=== PATIENT | female | born 1975 | race Hispanic/Latino ===

== ENCOUNTER 2017-07-14 11:48 | Emergency (ER) | payer OTHER ==
[~2017-07-14] VITALS: Ht 160 cm; Wt 77.1 kg
[~2017-07-14 11:48] MED LIST: IBUPROFEN600 MG PO; TRAMADOL HCL50 MG PO; ZOLOFT100 MG PO
== END 2017-07-14 13:56 | disposition home or self-care (01) ==
LOC: ED 11:48
DX: S06.0X9A Concussion with loss of consciousness of unspecified duration, initial encounter (principal); S00.33XA Contusion of nose, initial encounter; Z79.899 Other long term (current) drug therapy; W20.8XXA Other cause of strike by thrown, projected or falling object, initial encounter
CPT/HCPCS: 70450; 99284

== ENCOUNTER 2018-06-01 09:01 | Emergency (ER) | payer OTHER ==
[~2018-06-01] VITALS: Ht 160 cm; Wt 67.4 kg
--- OUTSIDE RECORDS SUMMARY | ~2018-06-01 | XMS | Clinical Summary ---
Demographics + + + | Address | [address] | | | [place] [address] | + + + | Home Phone | | + + + | Preferred Language | Unknown | + + + | Marital Status | | + + + | Alevism Affiliation | 1041 | + + + | Race | Unknown | + + + | Ethnic Group | Unknown | + + + Author + + + | Author | [facility] | | | and [place] | + + + | Organization | [facility] | | | and [place] | + + + | Address | Unknown | + + + | Phone | Unavailable | + + + Support + + + + + | Name | Relationship | Address | Phone | + + + + + | Fidel Nevarez | ECON | [place], | | | | | [place] [address] | | + + + + + | Sandy Garcia | ECON | [address] | | | | | [place] | | | | | [place] | | | | | [address] | | + + + + + Care Team Providers + +------+ + | Care Cash Applications Associate Name | Role | Phone | + +------+ + | Rizwan Alanis MD | PP | | + +------+ + Allergies No Known Allergies Medications + + + +---------+------+------+-------+ | Medication | Sig | Dispensed | Refills | Star | End | Statu | | | | | | t | Date | s | | | | | | Date | | | + + + +---------+------+------+-------+ | sertraline | Take 100 mg by mouth | | 0 | | | Activ | | (ZOLOFT) 50 mg | Daily. | | | | | e | | tablet | | | | | | | + + + +---------+------+------+-------+ | albuterol 90 | Inhale 2 puffs into | 1 | 0 | 06/1 | | Activ | | mcg/puff inhaler | the lungs every 4 | Inhaler | | 2/20 | | e | | | hours as needed for | | | 16 | | | | | Wheezing or | | | | | | | | Shortness of Breath. | | | | | | | | Use with spacer | | | | | | | | device. | | | | | | + + + +---------+------+------+-------+ | promethazine | Take 1 tablet by | 56 | 0 | 01/1 | | Activ | | (PHENERGAN) 25 mg | mouth every 4 hours | tablet | | 2/20 | | e | | tablet | as needed. | | | 17 | | | + + + +---------+------+------+-------+ | nortriptyline | 1 capsule by mouth | 90 | 1 | 04/1 | | Activ | | (PAMELOR) 10 MG | at bedtime for 7 | capsule | | 1/20 | | e | | capsule | days; then 2 at | | | 17 | | | | | bedtime for 7 days; | | | | | | | | then 3 at bedtime | | | | | | + + + +---------+------+------+-------+ | diazePAM (VALIUM) | Take 0.5 tablets by | 10 | 0 | 08/0 | | Activ | | 10 MG tablet | mouth every 6 hours | tablet | | 2/20 | | e | | | as needed for Other | | | 17 | | | | | (spasming). | | | | | | + + + +---------+------+------+-------+ | simvastatin | Take 10 mg by mouth | | 0 | | | Activ | | (ZOCOR) 10 mg tablet | nightly. | | | | | e | + + + +---------+------+------+-------+ | propranolol | Take 40 mg by mouth | | 0 | | | Activ | | (INDERAL) 40 mg | 3 times daily. | | | | | e | | tablet | | | | | | | + + + +---------+------+------+-------+ | acetaminophen | Take 1-2 tablets by | 60 | 0 | 01/0 | | Activ | | (TYLENOL) 500 mg | mouth every 6 hours | tablet | | 8/20 | | e | | tablet | as needed for Pain. | | | 18 | | | + + + +---------+------+------+-------+ | ibuprofen | Take 1 tablet by | 30 | 0 | 05/0 | | Activ | | (ADVIL,MOTRIN) 600 | mouth every 6 hours | tablet | | 6/20 | | e | | MG tablet | as needed for Pain. | | | 18 | | | + + + +---------+------+------+-------+ | hydrOXYzine | Take 1 tablet by | 40 | 0 | 08/1 | | Activ | | hydrochloride | mouth every 6 hours | tablet | | 9/20 | | e | | (ATARAX) 25 mg | as needed for | | | 18 | | | | tabletIndications: | Itching. | | | | | | | Local reaction to | | | | | | | | insect sting, | | | | | | | | accidental or | | | | | | | | unintentional, | | | | | | | | initial encounter | | | | | | | + + + +---------+------+------+-------+ | | Take 1-2 tablets by | 20 | 0 | 11/0 | | Activ | | oxyCODONE-acetaminop | mouth every 6 hours | tablet | | 3/20 | | e | | hen (PERCOCET) 5-325 | as needed for Pain. | | | 18 | | | | mg per tablet | | | | | | | + + + +---------+------+------+-------+ | traZODone | Take 50 mg by mouth | | 0 | | | Activ | | (DESYREL) 50 mg | nightly. | | | | | e | | tablet | | | | | | | + + + +---------+------+------+-------+ | cyclobenzaprine | Take 1 tablet by | 15 | 0 | 12/0 | | Activ | | (FLEXERIL) 10 mg | mouth 3 times daily | tablet | | 8/20 | | e | | tablet | as needed for Muscle | | | 18 | | | | | spasms. | | | | | | + + + +---------+------+------+-------+ | predniSONE | Take 3 tablets by | 15 | 0 | 12/2 | | Activ | | (DELTASONE) 20 mg | mouth Daily. | tablet | | 9/20 | | e | | tablet | | | | 18 | | | + + + +---------+------+------+-------+ | | Take 1 tablet by | 20 | 0 | 12/2 | | Activ | | oxyCODONE-acetaminop | mouth every 6 hours | tablet | | 9/20 | | e | | hen (PERCOCET) 5-325 | as needed. | | | 18 | | | | mg per tablet | | | | | | | + + + +---------+------+------+-------+ | meclizine | Take 1 tablet by | 20 | 0 | 02/1 | | Activ | | (ANTIVERT) 25 mg | mouth every 6 hours | tablet | | 0/20 | | e | | tablet | as needed for | | | 19 | | | | | Nausea. | | | | | | + + + +---------+------+------+-------+ | ondansetron | Take 1 tablet by | 15 | 0 | 02/1 | | Activ | | (ZOFRAN ODT) 4 mg | mouth every 6 hours | tablet | | 0/20 | | e | | disintegrating | as needed for | | | 19 | | | | tablet | Nausea. | | | | | | + + + +---------+------+------+-------+ | | Take 1 tablet by | 10 | 0 | 02/1 | | Activ | | HYDROcodone-acetamin | mouth EVERY 4 TO 6 | tablet | | 0/20 | | e | | ophen (NORCO) 5-325 | HOURS NEEDED for | | | 19 | | | | mg per tablet | Pain. | | | | | | + + + +---------+------+------+-------+ Active Problems + + + | Problem | Noted Date | + + + | Chronic bilateral thoracic back pain | 09/30/2016 | + + + | Postural kyphosis of cervicothoracic region | 09/30/2016 | + + + Encounters +--------+ + + + + | Date | Type | Specialty | Care Team | Description | +--------+ + + + + | 03/18/ | Emergency | | [place], | Peripheral vertigo, | | 2019 | | | Tha Powell MD | unspecified | | | | | | laterality (Primary | | | | | | Dx); Pain, dental; | | | | | | Dry socket | +--------+ + + + + from Last 3 Months Family History + + +------+ + | Medical History | Relation | Name | Comments | + + +------+ + | No known problems | Father | | | + + +------+ + | Diabetes | Mother | | | + + +------+ + | High blood pressure | Mother | | | + + +------+ + | High cholesterol | Mother | | | + + +------+ + + +------+ + + | Relation | Name | Status | Comments | + +------+ + + | Brother | | Alive | | + +------+ + + | Father | | | | + +------+ + + | Mother | | Alive | | + +------+ + + | Sister | | Alive | | + +------+ + + Social History + +-------+ +--------+------+ | Tobacco Use | Types | Packs/Day | Years | Date | | | | | Used | | + +-------+ +--------+------+ | Never Smoker | | | | | + +-------+ +--------+------+ + +---+---+---+ | Smokeless Tobacco: | | | | | Never Used | | | | + +---+---+---+ + + +---------+ + | Alcohol Use | Drinks/We | oz/Week | Comments | | | ek | | | + + +---------+ + | No | | | | + + +---------+ + + + + | Sex Assigned at | Date Recorded | | | | + + + | Not on file | | + + + + + + + | Job Start Date | Occupation | Industry | + + + + | Not on file | Not on file | Not on file | + + + + + + + + | Travel History | Travel Start | Travel End | + + + + + + | No recent travel history available. | + + Last Filed Vital Signs + + + + | Vital Sign | Reading | Time Taken | + + + + | Blood Pressure | 127/72 | 03/18/20181142 PST | + + + + | Pulse | 57 | 03/18/20183 PST | + + + + | Temperature | 36.8 C (98.3 F) | 03/18/20181021 PST | + + + + | Respiratory Rate | 18 | 03/18/20181021 PST | + + + + | Oxygen Saturation | 97% | 03/18/2018 1143 PST | + + + + | Inhaled Oxygen | - | - | | Concentration | | | + + + + | Weight | 69.4 kg (153 lb) | 03/18/20181021 PST | + + + + | Height | 160 cm (5' 3") | 03/18/20181021 PST | + + + + | Body Mass Index | 27.1 | 03/18/2018 1022 PST | + + + + Plan of Treatment + + + + + | Health Maintenance | Due Date | Last Done | Comments | + + + + + | Cervical Cancer | | | | | Screening (Pap) | 4 | | | + + + + + | Vaccine: | | 07/19/2017, 08/18/2014, | | | Dtap/Tdap/Td (4 - | 8 | 08/15/2014, Additional history | | | Td) | | exists | | + + + + + | Vaccine: Influenza | Completed | 12/25/2017, 02/16/2017, | | | | | 02/16/2017, Additional history | | | | | exists | | + + + + + Results Not on filefrom Last 3 Months Insurance + +--------+ +--------+ +---------+--------+ | Payer | Benefi | Subscriber | Effect | Phone | Address | Type | | | t Plan | ID | guillermo | | | | | | / | | Dates | | | | | | Group | | | | | | + +--------+ +--------+ +---------+--------+ | [employer] | CC[employer] | [id number] | | [phone] | | Indemn | | | WC | 3 | 017-Pr | 8 | | ity | | | | | esent | | | | + +--------+ +--------+ +---------+--------+ | [facility] | PHP | [id number] | 08/07/19 | [phone] | | PPO | | PLAN | PERSON | | 18-Pre | 5 | | | | | AL | | sent | | | | | | OPEN | | | | | | | | OPTION | | | | | | + +--------+ +--------+ +---------+--------+ | [employer] | HMA | [id number] | 10/08/19 | [phone] | | PPO | | ADMIN | BCBS | 0 | 14-Pre | 3 | | | | | PPO | | sent | | | | + +--------+ +--------+ +---------+--------+ + +--------+ +--------+ + + | Guarantor Name | Accoun | Relation to | Date | Phone | Billing Address | | | t Type | Patient | of | | | | | | | | | | + +--------+ +--------+ + + | Gina Nevarez | Person | Self [birth year] | [address] | | | al/Fam | | 1976 | [phone] | [place] | | | [place] | | | 7 (Home) | [phone] | + +--------+ +--------+ + + | Gina Nevarez | Worker | Self | [birth year] | [address] | | | s Comp | | 1975 | [phone] | [place] | | | | | | 1 (Home) | [phone] | + +--------+ +--------+ + + Advance Directives Patient has advance care planning documents on file. For more information, please contact:[facility] [place] [address]
--- OUTSIDE RECORDS SUMMARY | ~2018-06-01 | XMS | Encounter Summary ---
Demographics + + + | Address | [address] | | | [place] [address] | + + + | Home Phone | | + + + | Preferred Language | Unknown | + + + | Marital Status | | + + + | Oriental Orthodox Affiliation | 1041 | + + + | Race | Unknown | + + + | Ethnic Group | Unknown | + + + Author + + + | Author | [facility] | | | and [place] | + + + | Organization | [facility] | | | and [place] | + + + | Address | Unknown | + + + | Phone | Unavailable | + + + Support + + + + + | Name | Relationship | Address | Phone | + + + + + | Fidel Nevarez | ECON | [place], | | | | | [place] [address] | | + + + + + | Sandy Garcia | ECON | [address] | | | | | [place] | | | | | [place], [place] | | | | | [address] | | + + + + + Care Team Providers + +------+ + | Care Computer Designer Name | Role | Phone | + +------+ + | Rizwan Alanis MD | PCP | | + +------+ + Reason for Visit + + + | Reason | Comments | + + + | Nausea | | + + + | Dizziness | | + + + | Jaw Pain | | + + + Encounter Details +--------+ + + + + | Date | Type | Department | Care Team | Description | +--------+ + + + + | 03/18/ | Emergency | [facility] | [place] | Peripheral vertigo, | | 2019 | | [facility] | Tha Powell MD [address] | unspecified | | | | CENTER [address] | [address] [place] | laterality (Primary | | | | [place], [place] | [place] [address] | Dx); Pain, dental; | | | | [address] | [phone] | Dry socket | | | | [phone] | | | +--------+ + + + + Social History + +-------+ +--------+------+ [...] recent travel history available. | + + documented as of this encounter Last Filed Vital Signs + + + + | Vital Sign | Reading | Time Taken | + + + + | Blood Pressure | 127/72 | 03/18/20181142 PST | + + + + | Pulse | 57 | 03/18/20181142 PST | + + + + | Temperature | 36.8 C (98.3 F) | 03/18/20181021 PST | + + + + | Respiratory Rate | 18 | 03/18/20181021 PST | + + + + | Oxygen Saturation | 97% | 03/18/20181142 PST | + + + + | Inhaled Oxygen | - | - | | Concentration | | | + + + + | Weight | 69.4 kg (153 lb) | 03/18/2018 1022 PST | + + + + | Height | 160 cm (5' 3") | 03/18/2018 1022 PST | + + + + | Body Mass Index | 27.1 | 03/18/2018 1022 PST | + + + + documented in this encounter Discharge Instructions Instructions Tha Garcia MD - 03/18/2018Use meclizine to help with dizziness/tres tigo Use zofran if needed for nausea Use Melvin if needed for dental pain Return if worsening, otherwise follow up with you dentist and your doctor as needed Be sure to rinse out the tooth sockets after eating AttachmentsThe following attachments cannot be sent through Care Everywhere.Socket, Dry (Sp timothy)Dizziness (Vertigo) with Medicines, Managing (Surinamese)documented in this encounter Medications at Time of Discharge + + + +---------+ + + | Medication | Sig | Dispensed | Refills | Start | End Date | | | | | | Date | | + + + +---------+ + + | acetaminophen | Take 1-2 tablets by | 60 | 0 | 02/13/19 | | | (TYLENOL) 500 mg | mouth every 6 hours | tablet | | 18 | | | tablet | as needed for Pain. | | | | | + + + +---------+ + + | albuterol 90 | Inhale 2 puffs into | 1 | 0 | 07/19/19 | | | mcg/puff inhaler | the lungs every 4 | Inhaler | | 16 | | | | hours as needed for | | | | | | | Wheezing or | | | | | | | Shortness of Breath. | | | | | | | Use with spacer | | | | | | | device. | | | | | + + + +---------+ + + | cyclobenzaprine | Take 1 tablet by | 15 | 0 | 01/14/20 | | | (FLEXERIL) 10 mg | mouth 3 times daily | tablet | | 18 | | | tablet | as needed for Muscle | | | | | | | spasms. | | | | | + + + +---------+ + + | diazePAM (VALIUM) | Take 0.5 tablets by | 10 | 0 | 09/08/19 | | | 10 MG tablet | mouth every 6 hours | tablet | | 17 | | | | as needed for Other | | | | | | | (spasming). | | | | | + + + +---------+ + + | | Take 1 tablet by | 10 | 0 | 03/18/19 | | | HYDROcodone-acetamin | mouth EVERY 4 TO 6 | tablet | | 19 | | | ophen (NORCO) 5-325 | HOURS NEEDED for | | | | | | mg per tablet | Pain. | | | | | + + + +---------+ + + | hydrOXYzine | Take 1 tablet by | 40 | 0 | // | | | hydrochloride | mouth every 6 hours | tablet | | 18 | | | (ATARAX) 25 mg | as needed for | | | | | | tabletIndications: | Itching. | | | | | | Local reaction to | | | | | | | insect sting, | | | | | | | accidental or | | | | | | | unintentional, | | | | | | | initial encounter | | | | | | + + + +---------+ + + | ibuprofen | Take 1 tablet by | 30 | 0 | 06/12/19 | | | (ADVIL,MOTRIN) 600 | mouth every 6 hours | tablet | | 18 | | | MG tablet | as needed for Pain. | | | | | + + + +---------+ + + | meclizine | Take 1 tablet by | 20 | 0 | 03/18/19 | | | (ANTIVERT) 25 mg | mouth every 6 hours | tablet | | 19 | | | tablet | as needed for | | | | | | | Nausea. | | | | | + + + +---------+ + + | nortriptyline | 1 capsule by mouth | 90 | 1 | 05/18/19 | | | (PAMELOR) 10 MG | at bedtime for 7 | capsule | | 17 | | | capsule | days; then 2 at | | | | | | | bedtime for 7 days; | | | | | | | then 3 at bedtime | | | | | + + + +---------+ + + | ondansetron | Take 1 tablet by | 15 | 0 | 03/18/19 | | | (ZOFRAN ODT) 4 mg | mouth every 6 hours | tablet | | 19 | | | disintegrating | as needed for | | | | | | tablet | Nausea. | | | | | + + + +---------+ + + | | Take 1 tablet by | 20 | 0 | 02/04/20 | | | oxyCODONE-acetaminop | mouth every 6 hours | tablet | | 18 | | | hen (PERCOCET) 5-325 | as needed. | | | | | | mg per tablet | | | | | | + + + +---------+ + + | | Take 1-2 tablets by | 20 | 0 | 12/10/19 | | | oxyCODONE-acetaminop | mouth every 6 hours | tablet | | 18 | | | hen (PERCOCET) 5-325 | as needed for Pain. | | | | | | mg per tablet | | | | | | + + + +---------+ + + | predniSONE | Take 3 tablets by | 15 | 0 | 02/04/20 | | | (DELTASONE) 20 mg | mouth Daily. | tablet | | 18 | | | tablet | | | | | | + + + +---------+ + + | promethazine | Take 1 tablet by | 56 | 0 | 02/17/19 | | | (PHENERGAN) 25 mg | mouth every 4 hours | tablet | | 17 | | | tablet | as needed. | | | | | + + + +---------+ + + | propranolol | Take 40 mg by mouth | | 0 | | | | (INDERAL) 40 mg | 3 times daily. | | | | | | tablet | | | | | | + + + +---------+ + + | sertraline | Take 100 mg by mouth | | 0 | | | | (ZOLOFT) 50 mg | Daily. | | | | | | tablet | | | | | | + + + +---------+ + + | simvastatin | Take 10 mg by mouth | | 0 | | | | (ZOCOR) 10 mg tablet | nightly. | | | | | + + + +---------+ + + | traZODone | Take 50 mg by mouth | | 0 | | | | (DESYREL) 50 mg | nightly. | | | | | | tablet | | | | | | + + + +---------+ + + documented as of this encounter Plan of Treatment Not on filedocumented as of this encounter Visit Diagnoses + + | Diagnosis | + + | Peripheral vertigo, unspecified laterality - Primary | + + | Pain, dental Unspecified disorder of the teeth and supporting structures | + + | Dry socket Alveolitis of jaw | + + documented in this encounter Administered Medications + +--------+ + +------+------+ | Medication Order | MAR | Action | Dose | Rate | Site | | | Action | Date | | | | + +--------+ + +------+------+ | HYDROcodone-acetaminophen | Given | 03/18/19 | 1 tablet | | | | (NORCO) 5-325 mg per tablet 1 | | 19 10:38 | | | | | tablet 1 tablet, Oral, ONCE, Sun | | PST | | | | | 03/18/18 at 1035, For 1 dose | | | | | | + +--------+ + +------+------+ +---+---+ | | | +---+---+ + +-------+ +-------+---+---+ | meclizine (ANTIVERT) tablet 25 | Given | 03/18/19 | 25 mg | | | | mg 25 mg, Oral, ONCE, Sun | | 19 10:38 | | | | | 03/18/18 at 1035, For 1 dose | | PST | | | | + +-------+ +-------+---+---+ +---+---+ | | | +---+---+ + +-------+ +------+---+---+ | ondansetron (ZOFRAN ODT) | Given | 03/18/19 | 8 mg | | | | disintegrating tablet 8 mg 8 mg, | | 19 10:36 | | | | | Oral, ONCE, 03/18/18 at 1035, | | PST | | | | | For 1 dose | | | | | | + +-------+ +------+---+---+ +---+---+ | | | +---+---+ documented in this encounter
--- OUTSIDE RECORDS SUMMARY | ~2018-06-01 | XMS | Clinical Summary ---
Demographics + + + | Address | [address] | | | [place] [address] | + + + | Home Phone | | + + + | Preferred Language | Unknown | + + + | Marital Status | | + + + | Confucianist Affiliation | 1041 | + + + | Race | Unknown | + + + | Ethnic Group | Unknown | + + + Author + + + | Author | [facility] | + + + | Organization | [facility] | + + + | Address | Unknown | + + + | Phone | Unavailable | + + + Support + + +---------+ + | Name | Relationship | Address | Phone | + + +---------+ + | Fidel Nevarez | ECON | Unknown | | + + +---------+ + Care Team Providers + +------+ + | Care Content Coordinator Name | Role | Phone | + [...] | MA - GENERIC | MA-GEN | [phone] | Medica | | | | | NOELLE | | re | | | + +--------+ +--------+ +---------+ | ASURIS | HMA | | | [phone] | | INSURA | [id number] [phone] | | | [...] | | al/Fam | | 1975 | [phone] | [place], [place] | | | [place] | | | [phone] | [phone] | + +--------+ +--------+ + + | FIONA MATAMOROS | Person | Self | [birth year] | Home: | [address] | | | al/Fam | | 1975 | [phone] | [place] | | | [place] | | | [phone] | [phone] | + +--------+ +--------+ + + | FIONA NEVAREZ | Worker | Self | [birth year] | Home: | [address] | | | s Comp | | 1975 | [phone] | [place] | | | | | | [phone] | [phone] | + +--------+ +--------+ + +
--- OUTSIDE RECORDS SUMMARY | ~2018-06-01 | XMS | Encounter Summary ---
Demographics + + + | Address | [address] | | | [place] [address] | + + + | Home Phone | | + + + | Preferred Language | Unknown | + + + | Marital Status | | + + + | Mosque Affiliation | 1041 | + + + | Race | Unknown | + + + | Ethnic Group | Unknown | + + + Author + + + | Author | [facility] | | | and [place] | + + + | Organization | [facility] | | | and [place] | + + + | Address | Unknown | + + + | Phone | Unavailable | + + + Support + + + + + | Name | Relationship | Address | Phone | + + + + + | Fidel Nevarez | ECON | [place], | | | | | [place] [address] | | + + + + + | Sandy Garcia | ECON | [address] | | | | | [place] | | | | | [place], [place] | | | | | [address] | | + + + + + Care Team Providers + +------+ + | Care Standards Engineer Name | Role | Phone | + [...] + + | 03/18/ | Emergency | [facility] | [place], | Peripheral vertigo, | | 2019 | | [facility] | Tha Powell MD [address] | unspecified | | | | CENTER [address] | [address] [place] | laterality (Primary | | | | [place], [place] | [place] [address] | Dx); Pain, dental; | | | | [address] | [phone] | Dry socket | | | | [phone] | | | +--------+ + + + [...] in this encounter Discharge Instructions Instructions Tha Garcai MD - 03/18/2018Use meclizine to help with dizziness/tres tigo Use zofran if needed for nausea Use [place] if needed for dental pain Return if worsening, otherwise follow up with you dentist and your doctor as needed Be sure to rinse out the tooth sockets after eating AttachmentsThe following attachments cannot be sent through Care Everywhere.Socket, Dry (Sp timothy)Dizziness (Vertigo) with Medicines, Managing ([place]er)documented in this encounter Medications at Time of [...]
--- OUTSIDE RECORDS SUMMARY | ~2018-06-01 | XMS | Clinical Summary ---
Demographics + + + | Address | [address] | | | [place] [address] | + + + | Home Phone | | + + + | Preferred Language | Unknown | + + + | Marital Status | | + + + | Tenriism Affiliation | 1041 | + + + | Race | Unknown | + + + | Ethnic Group | Unknown | + + + Author + + + | Author | [facility] | + + + | Organization | [facility] | + + + | Address | Unknown | + + + | Phone | Unavailable | + + + Support + + +---------+ + | Name | Relationship | Address | Phone | + + +---------+ + | Fidel Nevarez | ECON | Unknown | | + + +---------+ + Care Team Providers + +------+ + | Care Profiler Operator Name | Role | Phone | + [...] | MA - GENERIC | MA-GEN | [id number] | Medica | | | | | NOELLE | | re | | | + +--------+ +--------+ +---------+ | ASURIS | HMA | | | [phone] | | | INSURA | [id number] | | [phone] | | | | [...] | | al/Fam | | 1975 | [phone] | [place], [place] | | | itto | | | [phone] | [address] | + +--------+ +--------+ + + | FIONA MATAMOROS | Person | Self | [birth year] | Home: | [address] | | | al/Fam | | 1975 | [phone] | [place] | | | tito | | | [phone] | [phone] | + +--------+ +--------+ + + | FIONA NEVAREZ | Worker | Self | [birth year] | Home: | [address] | | | s Comp | | 1975 | [phone] | [place] | | | | | | [phone] | [phone] | + +--------+ +--------+ + +
--- OUTSIDE RECORDS SUMMARY | ~2018-06-01 | XMS | Clinical Summary ---
Demographics + + + | Address | [address] | | | [place] [address] | + + + | Home Phone | | + + + | Preferred Language | Unknown | + + + | Marital Status | | + + + | Faith Affiliation | 1041 | + + + | Race | Unknown | + + + | Ethnic Group | Unknown | + + + Author + + + | Author | [facility] | | | and [place] | + + + | Organization | [facility] | | | and [place] | + + + | Address | Unknown | + + + | Phone | Unavailable | + + + Support + + + + + | Name | Relationship | Address | Phone | + + + + + | Fidel Nevarez | ECON | [place], | | | | | [place] [address] | | + + + + + | Sandy Garcia | ECON | [address] | | | | | [place] | | | | | [place] | | | | | [address] | | + + + + + Care Team Providers + +------+ + | Care Railroad Dispatcher Name | Role | Phone | + [...] +--------+ +---------+--------+ | CCMSI | CCMSI | [id number] | | [phone] | | Indemn | | | WC | 3 | 017-Pr | 8 | | ity | | | | | esent | | | | + +--------+ +--------+ +---------+--------+ | [facility] | PHP | [id number] | 08/07/19 | [phone] | | PPO | | PLAN | PERSON | | 18-Pre | 5 | | | | | AL | | sent | | | | | | OPEN | | | | | | | | OPTION | | | | | | + +--------+ +--------+ +---------+--------+ | [facility] | HMA | [id number] | 10/08/19 | [phone] | | PPO | | ADMIN | [...] | | al/Fam | | 1976 | [phone] | [place] | | | tito | | | 7 (Home) | [phone] | + +--------+ +--------+ + + | Gina Nevarez | Worker | Self | [birth year] | | [address] | | | s Comp | | 1975 | [phone] | [place] | | | | | | 1 (Home) | [phone] | + +--------+ +--------+ + + Advance Directives Patient has advance care planning documents on file. For more information, please contact:[facility] [place] [address]
[~2018-06-01 09:01] MED LIST changes: +DICLOFENAC SODI75 MG PO
--- OUTSIDE RECORDS SUMMARY | 2018-06-01 09:06 | XMS ---
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 Nakita VISIT COUNT (12 MO.) 7 Yusra Elizabeth TOTAL 10 NOTE: Visits indicate total known visits. ED/UCC VISIT TRACKING (12 MO.) 06/01/2018 09:02 [facility] [place] TYPE: Emergency COMPLAINT: - L SHOULDER PAIN/INJURY 03/18/2018 [facility]17 [facility] DIAGNOSES: - Other peripheral vertigo, unspecified ear - Other specified disorders of teeth and supporting structures - Dizziness - nausea/dizziness - Alveolitis of jaws - Jaw Pain - Nausea 02/03/2018 13:[address] [facility] [place] TYPE: Emergency DIAGNOSES: - Hand Pain - Neck Pain, arms and hands are numb weak - Numbness - Spinal stenosis, site unspecified - Arm Pain - Radiculopathy, cervical region - Tingling - Back Pain 02/01/2018 05:41 GRETEL Mena TYPE: Emergency COMPLAINT: - NECK PAIN,BILAT HAND NUMBNESS DIAGNOSES: - Other correction (current) drug therapy - Cervicalgia - Major depressive disorder, single episode, unspecified 01/13/2018 22:[address] [facility] [place] TYPE: Emergency DIAGNOSES: - BAck/neck pain,hand numbness,dizziness - Back Pain - Radiculopathy, cervical region - Cervicalgia 12/[facility]2017 [facility] DIAGNOSES: - Arm Pain - Radiculopathy, cervical region - Back Pain - Arm pain and numbness 11/20/2017 20:12 [facility] Cecilia Gandhi [place] TYPE: Emergency DIAGNOSES: - Sexually Transmitted Disease Check - Breast Problem - rash on breast/ pain - Unspecified sexually transmitted disease 09/24/2017 14:12 [facility] [place] TYPE: Urgent Care DIAGNOSES: - Insect Bite - Toxic effect of venom of wasps, accidental (unintentional), initial encounter - Toxic effect of venom of other arthropod, accidental (unintentional), initial encounter 07/14/2017 11:49 G[facility] [place] TYPE: Emergency COMPLAINT: - HEAD PAIN/NOSE INJURY DIAGNOSES: - Concussion with loss of consciousness of unspecified duration, initial encounter - Other cause of strike by thrown, projected or falling object, initial encounter - Other correction (current) drug therapy - Contusion of nose, initial encounter - Headache 07/01/2017 23:52 [facility] RicardoStephanie MERRILL TYPE: Emergency DIAGNOSES: - Anxiety - Nonpsychotic mental disorder, unspecified 06/11/2017 06:03 [facility] TYPE: Emergency DIAGNOSES: - Dizziness and giddiness - Numbness - Anesthesia of skin - Dizziness - dizzy INPATIENT VISIT TRACKING (12 MO.) No inpatient visits to display in this time frame [email or web address]
[2018-06-01] MEDS ORDERED: CYCLOBENZAPRINE5 MG PO (10:02)
[2018-06-01] MEDS ORDERED: ULTRAM50 MG PO (10:02)
== END 2018-06-01 10:28 | disposition home or self-care (01) ==
LOC: ED 09:01
DX: S16.1XXA Strain of muscle, fascia and tendon at neck level, initial encounter (principal); S46.812A Strain of other muscles, fascia and tendons at shoulder and upper arm level, left arm, initial encounter; F32.9 Major depressive disorder, single episode, unspecified; W01.10XA Fall on same level from slipping, tripping and stumbling with subsequent striking against unspecified object, initial encounter; Y99.0 Civilian activity done for income or pay
CPT/HCPCS: 70450; 72040; 99284-25

== ENCOUNTER 2018-07-05 15:23 | Emergency (ER) | payer OTHER ==
[~2018-07-05] VITALS: Ht 160 cm; Wt 68.0 kg
--- OUTSIDE RECORDS SUMMARY | ~2018-07-05 | XMS ---
Demographics + + + | Address | [address] | | | [place] [address] | + + + | Preferred Language | Unknown | + + + | Marital Status | Unknown | + + + | Jehovah'S Witness Affiliation | Unknown | + + + | Race | Unknown | + + + | Ethnic Group | Unknown | + + + Author + + + | Author | [facility] | + + + | Organization | [facility] | + + + | Address | [address] | | | [place] [address] | + + + | Phone | | + + + Care Team Providers + + + + | Care Hat Cutter Name | Role | Phone | + + + + Unavailable | Unavailable | + + + + PROBLEMS Unknown Problems ALLERGIES No Known Allergies SOCIAL HISTORY Never Assessed PLAN OF CARE + +---------+ | Activity | Details | + +---------+ +---+ | | +---+ + + + | Follow Up | prn Reason:null | + + + VITAL SIGNS + + + + | Height | 63 in | 2016-10-14 | + + + + | Weight | 171 lbs | 2016-10-14 | + + + + | BMI | 30.29 kg/m2 | 2016-10-14 | + + + + | Temperature | 98.5 degrees Fahrenheit | 2016-10-14 | + + + + | Heart Rate | 79 /min | 2016-10-14 | + + + + | Blood pressure systolic | 142 mm Hg | 2016-10-14 | + + + + | Blood pressure diastolic | 96 mm Hg | 2016-10-14 | + + + + MEDICATIONS + + + + + + + +--------+ | Medicati | Instruct | Dosage | Frequenc | Start | End Date | Duration | Status | | on | ions | | y | Date | | | | + + + + + + + +--------+ | Hydrocod | Orally | 2 | 6h | | | | Active | | one-Acet | every 6 | tablets | | | | | | | aminophe | hrs | as | | | | | | | n 5-325 | | needed | | | | | | | MG | | | | | | | | + + + + + + + +--------+ | Sertrali | Orally | 1 tablet | 24h | | | | Active | | ne HCl | Once a | | | | | | | | 100 MG | day | | | | | | | + + + + + + + +--------+ | Trazodon | Orally | 1-2 | 24h | | | | Active | | e 50 MG | Once a | tablet | | | | | | | | day | at | | | | | | | | | bedtime | | | | | | + + + + + + + +--------+ | Motrin | Orally | 1 tablet | | 08 Sep, | | 30 | Active | | IB 800 | tid prn | as | | 2016 | | | | | MG | pain | needed | | | | | | + + + + + + + +--------+ | Azithrom | Orally | 2 tabs | 24h | 08 Sep, | 13 Sep, | 5 days | Active | | ycin 250 | daily | now then | | 2017 | 2017 | | | | mg | | 1 a day | | | | | | + + + + + + + +--------+ | Simvasta | Orally | 1 tablet | 24h | | | | Active | | tin 10 | Once a | in the | | | | | | | MG | day | evening | | | | | | + + + + + + + +--------+ | Proprano | Orally | 1 tablet | 12h | | | | Active | | lol HCl | Twice a | | | | | | | | 40 MG | day | | | | | | | + + + + + + + +--------+ | Ondanset | Orally | 1 tablet | 8h | | | | Active | | francisco 4 MG | every 8 | on the | | | | | | | | hrs | tongue | | | | | | | | | and | | | | | | | | | allow to | | | | | | | | | | | | | | | | | | dissolve | | | | | | + + + + + + + +--------+ RESULTS No Results PROCEDURES No Known procedures IMMUNIZATIONS No Known Immunizations MEDICAL (GENERAL) HISTORY + + +------+ | Type | Description | Date | + + +------+ | Medical History | Last Pap Smear was May | | | | [facility] | | + + +------+"
--- OUTSIDE RECORDS SUMMARY | ~2018-07-05 | XMS | Clinical Summary ---
Demographics + + + | Address | [address] | | | [place] [address] | + + + | Home Phone | | + + + | Preferred Language | Unknown | + + + | Marital Status | | + + + | Mormon Affiliation | 1041 | + + + | Race | Unknown | + + + | Ethnic Group | Unknown | + + + Author + + + | Author | [facility] | + + + | Organization | [employer] | + + + | Address | Unknown | + + + | Phone | Unavailable | + + + Support + + +---------+ + | Name | Relationship | Address | Phone | + + +---------+ + | Fidel Nevarez | ECON | Unknown | | + + +---------+ + Care Team Providers + +------+ + | Care Manager Employee Relations Name | Role | Phone | + +------+ + | Rizwan Alanis MD | PP | | + +------+ + Allergies No Known Allergies Current Medications + + +--------+---------+------+------+-------+ | Prescription | Sig. | Disp. | Refills | Star | End | Statu | | | | | | t | Date | s | | | | | | Date | | | + + +--------+---------+------+------+-------+ | LORazepam (ATIVAN) | Take 1 mg by mouth | | | | | Activ | | 1 MG tablet | every 8 (eight) | | | | | e | | | hours as needed for | | | | | | | | Anxiety. | | | | | | + + +--------+---------+------+------+-------+ | simvastatin | Take 10 mg by mouth | | | | | Activ | | (ZOCOR) 10 MG tablet | nightly. | | | | | e | + + +--------+---------+------+------+-------+ | risperiDONE | Take 1 mg by mouth 2 | | | | | Activ | | (RISPERDAL) 1 MG | (two) times daily. | | | | | e | | tablet | | | | | | | + + +--------+---------+------+------+-------+ | | Take 1 tablet by | | | | | Activ | | norgestimate-ethinyl | mouth daily. | | | | | e | | estradiol | | | | | | | | (ORTHO-CYCLEN) | | | | | | | | 0.25-35 MG-MCG per | | | | | | | | tablet | | | | | | | + + +--------+---------+------+------+-------+ | propranolol | Take 40 mg by mouth | | | | | Activ | | (INDERAL) 40 MG | 2 (two) times daily. | | | | | e | | tablet | | | | | | | + + +--------+---------+------+------+-------+ | sertraline | Take 100 mg by mouth | | | | | Activ | | (ZOLOFT) 100 MG | daily. | | | | | e | | tablet | | | | | | | + + +--------+---------+------+------+-------+ | traZODone | Take 50 mg by mouth | | | | | Activ | | (DESYREL) 50 MG | nightly. | | | | | e | | tablet | | | | | | | + + +--------+---------+------+------+-------+ | topiramate | Take 1 tablet by | 60 | 3 | 10/08 | | Activ | | (TOPAMAX) 25 MG | mouth 2 (two) times | tablet | | 02/25 | | e | | tabletIndications: | daily. 25 mg daily | | | 17 | | | | Intractable chronic | for one week then 25 | | | | | | | migraine without | mg bid | | | | | | | aura and without | | | | | | | | status migrainosus, | | | | | | | | Post-concussion | | | | | | | | headache | | | | | | | + + +--------+---------+------+------+-------+ Active Problems + + + | Problem | Noted Date | + + + | Blackout spell | 10/27/2016 | + + + | Post concussion syndrome | 10/27/2016 | + + + | Post-concussion headache | 10/27/2016 | + + + Family History + + +------+ + | Medical History | Relation | Name | Comments | + + +------+ + | Cancer | Mother | | | + + +------+ + | Diabetes type II | Mother | | | + + +------+ + + +------+--------+ + | Relation | Name | Status | Comments | + +------+--------+ + | Mother | | | | + +------+--------+ + Social History + +-------+ +--------+------+ | [...] on file | | + + + Last Filed Vital Signs + + + + | Vital Sign | Reading | Time Taken | + + + + | Blood Pressure | 151/102 | 04/06/2017 1:10 PM PST | + + + + | Pulse | 79 | 04/06/2017 1:10 PM PST | + + + + | Temperature | 35.8 C (96.4 F) | 06/19/2016 5:04 PM PDT | + + + + | Respiratory Rate | 15 | 06/19/2016 6:36 PM PDT | + + + + | Oxygen Saturation | 98% | 04/06/2017 1:10 PM PST | + + + + | Inhaled Oxygen | - | - | | Concentration | | | + + + + | Weight | 80.7 kg (177 lb 14.4 | 04/06/2017 1:10 PM PST | | | oz) | | + + + + | Height | 160 cm (5' 3") | 04/06/2017 1:10 PM PST | + + + + | Body Mass Index | 31.51 | 04/06/2017 1:10 PM PST | + + + + Plan of Treatment + + + + + | Health Maintenance | Due Date | Last Done | Comments | + + + + + | Cervical Cancer | | | | | Screening (Pap) | 4 | | | + + + + + | Vaccine: | | 08/18/2014, 08/15/2014, | | | Dtap/Tdap/Td (3 - | 5 | 09/01/2005, Additional history | | | Td) | | exists | | + + + + + | Vaccine: Influenza | Completed | 12/21/2017, 01/04/2016, | | | | | 12/07/2007 | | + + + + + Results Not on filefrom Last 3 Months Insurance + +--------+ +--------+ +---------+ | Payer | Benefi | Subscriber | Type | Phone | Address | | | t Plan | ID | | | | | | / | | | | | | | Group | | | | | + +--------+ +--------+ +---------+ | MA - GENERIC | MA-GEN | [id number] | Medica | | | | | NOELLE | | re | | | + +--------+ +--------+ +---------+ | ASURIS | HMA | | | [phone] | | | INSURA | [id number] | | [phone] | | | | NCE | 0 | | | | + +--------+ +--------+ +---------+ + +--------+ +--------+ + + | Guarantor Name | Accoun | Relation to | Date | Phone | Billing Address | | | t Type | Patient | of | | | | | | | | | | + +--------+ +--------+ + + | FIONA NEVAREZ | Person | Self | [birth year] | Home: | [address] | | | al/Fam | | 1975 | [phone] | [place], [place] | | | tito | | | [phone] | [phone] | + +--------+ +--------+ + + | FIONA MATAMOROS | Person | Self | [birth year] | Home: | [address] | | | al/Fam | | 1975 | [phone] | [place] | | | [place] | | | [phone] | [phone] | + +--------+ +--------+ + + | FIONA NEVAREZ | Worker | Self | [birth year] | Home: | [address] | | | s Comp | | 1975 | [phone] | [place] | | | | | | [phone] | [phone] | + +--------+ +--------+ + +
--- OUTSIDE RECORDS SUMMARY | ~2018-07-05 | XMS ---
Demographics + + + | Address | [address] | | | [place] [address] | + + + | Preferred Language | Unknown | + + + | Marital Status | Unknown | + + + | Baptist Affiliation | Unknown | + + + | Race | Unknown | + + + | Ethnic Group | Unknown | + + + Author + + + | Author | [facility] | + + + | Organization | [facility] | + + + | Address | [address] | | | [place] [address] | + + + | Phone | | + + + Care Team Providers + + + + | Care Innersole Fitter Name | Role | Phone | + + + + Unavailable | Unavailable | + + + + PROBLEMS Unknown Problems ALLERGIES Unknown Allergies SOCIAL HISTORY No smoking Hx information available PLAN OF CARE VITAL SIGNS MEDICATIONS Unknown Medications RESULTS No Results PROCEDURES No Known procedures IMMUNIZATIONS No Known Immunizations"
--- OUTSIDE RECORDS SUMMARY | ~2018-07-05 | XMS | Clinical Summary ---
Demographics + + + | Address | [address] | | | [place] [address] | + + + | Home Phone | | + + + | Preferred Language | Unknown | + + + | Marital Status | | + + + | Advent Affiliation | 1041 | + + + | Race | Unknown | + + + | Ethnic Group | Unknown | + + + Author + + + | Author | [facility] | | | and [place] | + + + | Organization | [facility] | | | and [place] | + + + | Address | Unknown | + + + | Phone | Unavailable | + + + Support + + + + + | Name | Relationship | Address | Phone | + + + + + | Fidel Nevarez | ECON | [place], | | | | | [place] [address] | | + + + + + | Sandy Garcia | ECON | [address] | | | | | [place] | | | | | [place] | | | | | [address] | | + + + + + Care Team Providers + +------+ + | Care Grand Scribe Name | Role | Phone | + [...] region | 09/30/2016 | + + + Family History + [...] Temperature | 36.8 C (98.3 F) | 03/18/2018 102 PST | + + + + | Respiratory Rate | 18 | 03/18/2018 102 PST | + + + + | [...] | Body Mass Index | 27.1 | 03/18/20181021 PST | + + + + Plan [...] +--------+ +---------+--------+ | CCMSI | CCMSI | [id number] | | [phone] | | Indemn | | | WC | 3 | 017-Pr | 8 | | ity | | | | | esent | | | | + +--------+ +--------+ +---------+--------+ | [facility] | PHP | [id number] | 08/07/19 | [phone] | | PPO | | PLAN | PERSON | | 18-Pre | 5 | | | | | AL | | sent | | | | | | OPEN | | | | | | | | OPTION | | | | | | + +--------+ +--------+ +---------+--------+ | [facility] | HMA | [id number] | 10/08/19 | [phone] | | PPO | | ADMIN | [...] | | al/Fam | | 1975 | [phone] | [place], [place] | | | [place]ito | | | 7 (Home) | [phone] | + +--------+ +--------+ + + | Gina Nevarez | Worker | Self | [birth year] | | [address] | | | s Comp | | 1975 | [phone] | [place], [place] | | | | | | 1 (Home) | [phone] | + +--------+ +--------+ + + Advance Directives Patient has advance care planning documents on file. For more information, please contact:[facility] [place] [address]
--- OUTSIDE RECORDS SUMMARY | ~2018-07-05 | XMS ---
Demographics + + + | Address | [address] | | | [place] [address] | + + + | Preferred Language | Unknown | + + + | Marital Status | Unknown | + + + | Christian Affiliation | Unknown | + + + | Race | Unknown | + + + | Ethnic Group | Unknown | + + + Author + + + | Author | [facility] | + + + | Organization | [facility] | + + + | Address | [address] | | | [place] [address] | + + + | Phone | | + + + Care Team Providers + + + + | Care Digital Marketing Officer Name | Role | Phone | + + + + Unavailable | Unavailable | + + + + PROBLEMS Unknown Problems ALLERGIES Unknown Allergies SOCIAL HISTORY No smoking Hx information available PLAN OF CARE VITAL SIGNS MEDICATIONS Unknown Medications RESULTS No Results PROCEDURES No Known procedures IMMUNIZATIONS No Known Immunizations"
--- OUTSIDE RECORDS SUMMARY | ~2018-07-05 | XMS ---
Demographics + + + | Address | [address] | | | [place] [address] | + + + | Preferred Language | Unknown | + + + | Marital Status | Unknown | + + + | Quaker Affiliation | Unknown | + + + | Race | Unknown | + + + | Ethnic Group | Unknown | + + + Author + + + | Author | [facility] | + + + | Organization | [facility] | + + + | Address | [address] | | | [place] [address] | + + + | Phone | | + + + Care Team Providers + + + + | Care Core Winder Name | Role | Phone | + + + + Unavailable | Unavailable | + + + + PROBLEMS Unknown Problems ALLERGIES + + + + +---------+ | Substance | Reaction | Event Type | Date | Status | + + + + +---------+ | Shikha | Unknown | Non Drug | Jul, | Unknown | | | | Allergy | | | + + + + +---------+ SOCIAL HISTORY No smoking Hx information available PLAN OF CARE + +---------+ | Activity | Details | + +---------+ +---+ | | +---+ + + + | Follow Up | 4 Weeks Reason:null | + + + VITAL SIGNS + + + + | Height | 63 in | 2016-07-13 | + + + + | Weight | 166.4 lbs | 2016-07-13 | + + + + | BMI | 29.47 kg/m2 | 2016-07-13 | + + + + | Temperature | 98.9 degrees Fahrenheit | 2016-07-13 | + + + + | Heart Rate | 83 /min | 2016-07-13 | + + + + | Blood pressure systolic | 177 mm Hg | 2016-07-13 | + + + + | Blood pressure diastolic | 81 mm Hg | 2016-07-13 | + + + + MEDICATIONS + [...] + + + + + +--------+ | Flexeril | Orally | 1 tablet | | 06 July, | Sep, | 30 | Active | | 10 MG | at hs | | | 2016 | day(s) | | + + + + + + + +--------+ | Mobic 15 | Orally | 1 tablet | 24h | 06 July, | Sep, | 30 | Active | | MG | Once a | | | 2016 | day(s) | | | | day | | | | | [...] + + +--------+ RESULTS No Results PROCEDURES + + + + + | Procedure | Date Ordered | Related Diagnosis | Body Site | + + + + + | Est Level III | July 13, 2016 | | | | Intermediate | | | | + + + + + IMMUNIZATIONS No Known Immunizations"
--- OUTSIDE RECORDS SUMMARY | ~2018-07-05 | XMS ---
Demographics + + + | Address | [address] | | | [place] [address] | + + + | Preferred Language | Unknown | + + + | Marital Status | Unknown | + + + | Restorationist Affiliation | Unknown | + + + | Race | Unknown | + + + | Ethnic Group | Unknown | + + + Author + + + | Author | [facility] | + + + | Organization | [facility] | + + + | Address | [address] | | | [place] [address] | + + + | Phone | | + + + Care Team Providers + + + + | Care Body Sander Name | Role | Phone | + + + + Unavailable | Unavailable | + + + + PROBLEMS Unknown Problems ALLERGIES + + + + +---------+ | Substance | Reaction | Event Type | Date | Status | + + + + +---------+ | Shikha | Unknown | Non Drug | Aug, | Unknown | | | | Allergy [...] + | Height | 63 in | 2016-08-11 | + + + + | Weight | 165.8 lbs | 2016-08-11 | + + + + | BMI | 29.37 kg/m2 | 2016-08-11 | + + + + | Temperature | 98.7 degrees Fahrenheit | 2016-08-11 | + + + + | Heart Rate | 72 /min | 2016-08-11 | + + + + | Blood pressure systolic | 159 mm Hg | 2016-08-11 | + + + + | Blood pressure diastolic | 102 mm Hg | 2016-08-11 | + + + + MEDICATIONS + [...] Orally | 1 tablet | 24h | 31 June, | 29 Sep, | 30 | Active | | MG | Once a | | | 2017 | 2017 | day(s) | | | | day [...] at hs | | | 2016 | 2016 | day(s) | | + [...] + + + + | Est Level II | August 11, 2016 | | | | Limited | | | | + + + + + IMMUNIZATIONS No Known Immunizations"
--- OUTSIDE RECORDS SUMMARY | ~2018-07-05 | XMS ---
Demographics + + + | Address | [address] | | | [place] [address] | + + + | Preferred Language | Unknown | + + + | Marital Status | Unknown | + + + | Sabianist Affiliation | Unknown | + + + | Race | Unknown | + + + | Ethnic Group | Unknown | + + + Author + + + | Author | [facility] | + + + | Organization | [facility] | + + + | Address | [address] | | | [place] [address] | + + + | Phone | | + + + Care Team Providers + + + + | Care Cpo Name | Role | Phone | + + + + Unavailable | Unavailable | + + + + PROBLEMS Unknown Problems ALLERGIES Unknown Allergies SOCIAL HISTORY No smoking Hx information available PLAN OF CARE VITAL SIGNS MEDICATIONS Unknown Medications RESULTS No Results PROCEDURES No Known procedures IMMUNIZATIONS No Known Immunizations"
--- OUTSIDE RECORDS SUMMARY | ~2018-07-05 | XMS | Clinical Summary ---
Demographics + + + | Address | [address] | | | [place] [address] | + + + | Home Phone | | + + + | Preferred Language | Unknown | + + + | Marital Status | | + + + | Oriental Orthodox Affiliation | 1041 | + + + | Race | Unknown | + + + | Ethnic Group | Unknown | + + + Author + + + | Author | [employer] | + + + | Organization | [facility] | + + + | Address | Unknown | + + + | Phone | Unavailable | + + + Support + + +---------+ + | Name | Relationship | Address | Phone | + + +---------+ + | Fidel Nevarez | ECON | Unknown | | + + +---------+ + Care Team Providers + +------+ + | Care Basketballs And Footballs Reverser Name | Role | Phone | + [...] | MA - GENERIC | MA-GEN | [phone] | Medica | | | | | NOELLE | | re | | | + +--------+ +--------+ +---------+ | ASURIS | HMA | | | [phone] | | | INSURA | [id number] | | [phone] | | | | [...] | | al/Fam | | 1975 | [phone] | [place], [place] | | | tito | | | [phone] | [phone] | + +--------+ +--------+ + + | FIONA MATAMOROS | Person | Self | [birth year] | Home: | [address] | | | al/Fam | | 1975 | [phone] | [place] | | | tito | | | [phone] | [phone] | + +--------+ +--------+ + + | FIONA NEVAREZ | Worker | Self | [birth year] | Home: | [address] | | | s Comp | | 1975 | [phone] | [place] | | | | | | [phone] | [phone] | + +--------+ +--------+ + +
--- OUTSIDE RECORDS SUMMARY | ~2018-07-05 | XMS | Clinical Summary ---
Demographics + + + | Address | [address] | | | [place] [address] | + + + | Home Phone | | + + + | Preferred Language | Unknown | + + + | Marital Status | | + + + | Mosque Affiliation | 1041 | + + + | Race | Unknown | + + + | Ethnic Group | Unknown | + + + Author + + + | Author | [facility] | | | and [place] | + + + | Organization | [facility] | | | and [place] | + + + | Address | Unknown | + + + | Phone | Unavailable | + + + Support + + + + + | Name | Relationship | Address | Phone | + + + + + | Fidel Nevarez | ECON | [place], | | | | | [place] [address] | | + + + + + | Sandy Garcia | ECON | [address] | | | | | [place] | | | | | [place] | | | | | [address] | | + + + + + Care Team Providers + +------+ + | Care Kiln Loader Name | Role | Phone | + [...] +--------+ +---------+--------+ | [facility] | [facility] | [id number] | | [phone] | | Indemn | | | WC | 3 | 017-Pr | 8 | | ity | | | | | esent | | | | + +--------+ +--------+ +---------+--------+ | [facility] | PHP | [id number] | 08/07/19 | [phone] | | PPO | | PLAN | PERSON | | 18-Pre | 5 | | | | | [place] | | sent | | | | | | OPEN | | | | | | | | OPTION | | | | | | + +--------+ +--------+ +---------+--------+ | [facility] | HMA | [id number] | 10/08/19 | [phone] | | PPO | | ADMIN | [...] | | al/Fam | | 1975 | [phone] | [place], [place] | | | tito | | | 7 (Home) | [phone] | + +--------+ +--------+ + + | Gina Nevarez | Worker | Self | [birth year] | | [address] | | | s Comp | | 1975 | [phone] | [place], [place] | | | | | | 1 (Home) | [phone] | + +--------+ +--------+ + + Advance Directives Patient has advance care planning documents on file. For more information, please contact:[facility] [place] [address]
[~2018-07-05 15:23] MED LIST changes: +CYCLOBENZAPRINE5 MG PO; +ULTRAM50 MG PO
--- OUTSIDE RECORDS SUMMARY | 2018-07-05 15:26 | XMS ---
PreManage Notification: FIONA VENTURA Security Edgerman Events No recent Security Events currently on file CRITERIA MET - 6 ED Visits in 6 Months - [facility] Current PHONE: Unknown Roselia G[facility]a [facility] Current PHONE: Unknown Alexandra has no Care Guidelines for this patient. Nakita VISIT COUNT (12 MO.) 5 Yusra Elizabeth TOTAL 9 NOTE: Visits indicate total known visits. ED/UCC VISIT TRACKING (12 MO.) 07/05/2018 15:24 [facility] [place] TYPE: Emergency COMPLAINT: - DIZZINESS,ARM TINGLING,WEAKNESS 06/01/2018 09:02 [facility] [place] TYPE: Emergency COMPLAINT: - WC- L SHOULDER PAIN/INJURY DIAGNOSES: - Civilian activity done for income or pay - Strain of muscle, fascia and tendon at neck level, initial encounter - Strain of other muscles, fascia and tendons at shoulder and upper arm level, left arm, initial encounter - Major depressive disorder, single episode, unspecified - Pain in left shoulder - Fall on same level from slipping, tripping and stumbling with subsequent striking against unspecified object, initial encounter [facility]18[facility]2018 [facility] DIAGNOSES: - Other peripheral vertigo, unspecified ear - Other specified disorders of teeth and supporting structures - Dizziness - nausea/dizziness - Alveolitis of jaws - Jaw Pain - Nausea 02/03/2018 13:53 [facility] [place] TYPE: Emergency DIAGNOSES: - Hand Pain - Neck Pain, arms and hands are numb weak - Numbness - Spinal stenosis, site unspecified - Arm Pain - Radiculopathy, cervical region - Tingling - Back Pain 02/01/2018 05:41 [facility] TYPE: Emergency COMPLAINT: - NECK PAIN,BILAT HAND NUMBNESS DIAGNOSES: - Other halfway (current) drug therapy - Cervicalgia - Major depressive disorder, single episode, unspecified 01/13/2018 22:13 [facility] Emergency DIAGNOSES: - BAck/neck pain,hand numbness,dizziness - Back Pain - Radiculopathy, cervical region - Cervicalgia 12/09/2017 10:58 [facility] [place] TYPE: Emergency DIAGNOSES: - Arm Pain - Radiculopathy, cervical region - Back Pain - Arm pain and numbness 11/20/2017 20:12 [facility] [place] [facility] DIAGNOSES: - Sexually Transmitted Disease Check - Breast Problem - rash on breast/ pain - Unspecified sexually transmitted disease 09/24/2017 14:12 [facility] [place] TYPE: Urgent Care DIAGNOSES: - Insect Bite - Toxic effect of venom of wasps, accidental (unintentional), initial encounter - Toxic effect of venom of other arthropod, accidental (unintentional), initial encounter 07/14/2017 11:[address] [facility] [place] TYPE: Emergency COMPLAINT: - HEAD PAIN/NOSE INJURY DIAGNOSES: - Concussion with loss of consciousness of unspecified duration, initial encounter - Other cause of strike by thrown, projected or falling object, initial encounter - Other halfway (current) drug therapy - Contusion of nose, initial encounter - Headache INPATIENT VISIT TRACKING (12 MO.) No inpatient visits to display in this time frame [email or web address]
[2018-07-05] MEDS ORDERED: CYCLOBENZAPRINE10 MG PO (19:25)
[2018-07-05] MEDS ORDERED: METHYLPREDNISOLO4 M1 PO (19:25)
== END 2018-07-05 19:36 | disposition home or self-care (01) ==
LOC: ED 15:23
DX: S13.8XXA Sprain of joints and ligaments of other parts of neck, initial encounter (principal); M54.12 Radiculopathy, cervical region; F32.9 Major depressive disorder, single episode, unspecified; W01.198A Fall on same level from slipping, tripping and stumbling with subsequent striking against other object, initial encounter
CPT/HCPCS: 99283

== ENCOUNTER 2024-04-09 08:29 | Emergency (ER) | payer OTHER ==
[~2024-04-09] VITALS: Ht 160 cm; Wt 73.9 kg
[~2024-04-09 08:29] MED LIST changes: +CYCLOBENZAPRINE10 MG PO; +METHYLPREDNISOLO4 M1 PO
--- OUTSIDE RECORDS SUMMARY | 2024-04-09 08:35 | XMS ---
PreManage Notification: FIONA VENTURA [employer] Events No recent Security Events currently on file CRITERIA MET - [facility] - 2 Visits in 30 Days CARE PROVIDERS -[facility] Dentist: Photographer Finish [facility] PHONE: [phone] - [place]- Dentist: Photographer Finish [facility] PHONE: [phone] DONNY GLASS Nurse Practitioner Current PHONE: Unknown Alexandra has no Care Guidelines for this patient. [facility] VISIT COUNT (12 MO.) [address] Cecilia Gandhi ([place]) 1 GRETEL Marroquinony [place] TOTAL 6 NOTE: Visits indicate total known visits. ED/UCC VISIT TRACKING (12 MO.) 04/09/2024 08:29 [facility] [place] TYPE: Emergency COMPLAINT: - ABDOMINAL PAIN 03/23/2024 17:47 [facility] Hiram MERRILL ([place]) TYPE: Emergency DIAGNOSES: - Epigastric pain - abd pain - Abdominal Pain 03/01/2024 07:57 [facility] [place] (Davian Marcelo) TYPE: Emergency DIAGNOSES: - Abdominal distension (gaseous) - Gastroparesis - Abdominal Pain - Indigestion - weak, lightheaded, abd pain - Weakness 07/25/2023 07:51 [facility] Davian MERRILL (Davian Marcelo) TYPE: Emergency DIAGNOSES: - Acute gastroenteropathy due to [place] agent - Diarrhea, unspecified - Shigellosis, unspecified - Diarrhea (Adult) - vomiting 07/22/2023 14:42 [facility] [place] (Davian Marcelo) TYPE: Emergency DIAGNOSES: - Diarrhea, unspecified - diarrhea - Diarrhea (Adult) - Fatigue - Rash 06/05/2023 23:49 [facility] Hiram MERRILL ([place] Marcelo) TYPE: Emergency DIAGNOSES: - Fever, unspecified - Abdominal Pain - Sore / unable sleep - Sore / unable to sleep INPATIENT VISIT TRACKING (12 MO.) No inpatient visits to display in this time frame [email or web address]
[2024-04-09] MEDS ORDERED: LISINOPRIL5 MG PO (08:42)
[2024-04-09] MEDS ORDERED: PANTOPRAZOLE SO40 MG PO (08:42)
[2024-04-09] MEDS ORDERED: PRILOSEC OTC20 MG PO (09:03)
[2024-04-09 09:13] VITALS: BP 127/91
== END 2024-04-09 09:14 | disposition home or self-care (01) ==
LOC: ED 08:29
DX: K29.70 Gastritis, unspecified, without bleeding (principal); B96.81 Helicobacter pylori [H. pylori] as the cause of diseases classified elsewhere; Z79.899 Other long term (current) drug therapy
CPT/HCPCS: 99283